=== PATIENT | male | born 1965 | race Two or more races ===

== ENCOUNTER 2025-06-29 16:49 | Emergency (ER) | payer OTHER, SELFPAY ==
[2025-06-29 16:51] VITALS: BP 138/100
--- NOTE | 2025-06-29 17:38 | ED.GENMED ---
History of Present Illness
General
Chief Complaint: Musculo-Skeletal Complaint
Source: patient
Exam Limitations: none
Time Seen by Provider: 06/29/25 17:27
History of Present Illness
History of Present Illness:
See MDM
Past History
Past History
ED Past Medical History: CAD, HTN and Hypercholesterolemia
ED Past Surgical History: Cardiac
Patient has exhibited threatening behavior?: No
PSI?: No
Phy Exam
Physical Exam
Physical Exam:
See MDM
Course
Orders/Labs/Results
Orders:
Orders
06/29/25 17:37
Electrocardiogram (*1) Urgent
Reason for Study: Chest Pain
EKG- Treatment ONCE
CR Chest - 2 Views Urgent
Comment:
Reason For Exam: cough
06/29/25 17:55
COVID-19 Antigen Urgent
Source: Nasal Swab
Complete Blood Count/With Diff Urgent
Comprehensive Metabolic Panel Urgent
Manual Differential Urgent
Troponin I Urgent
Urinalysis Reflex To Culture Urgent
Date Specimen was Collected: 06/29/25
Time Specimen was Collected: 17:40
Influenza A+B Rapid Molecular Urgent
MARIELENA Source: Nasal Swab
Specimen Description:
Abnormal Lab Results
06/29/25
17:55
Hgb 12.0 L g/dL
(13.0-18.0)
Hct 37.2 L %
(39.0-52.0)
MCV 70.3 L fL
(80.0-94.0)
MCH 22.7 L pg
(27.0-31.0)
MCHC 32.3 L g/dL
(33.0-37.0)
RDW 15.6 H %
(11.5-14.5)
MPV 10.5 H fL
(7.4-10.4)
Monocytes (Manual) 19 H %
(2-9)
Urine Glucose 4+ A
(Negative)
06/29/25 17:55
06/29/25 17:55
Vital Signs
Initial and Last Documented VS:
Initial Vital Signs
Temp Pulse Resp BP Pulse Ox
98.0 F 98 18 138/100 99
06/29/25 16:51 06/29/25 16:51 06/29/25 16:51 06/29/25 16:51 06/29/25 16:51
Last Documented Vital Signs
Temp Pulse Resp BP Pulse Ox
98.0 F 84 19 136/89 98
06/29/25 16:51 06/29/25 18:00 06/29/25 18:00 06/29/25 18:00 06/29/25 18:06
MDM/Problems Addressed
Differential Diagnosis Includes:
CHIEF COMPLAINT(S)
Chest discomfort, generalized muscle cramping, and increased urination at night.
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
HISTORY OF PRESENT ILLNESS
The patient is a 60-year-old male presenting with one week of significant perspiration observed upon waking. This is associated with generalized muscle cramping in both legs and hands. The patient also reports a mild cough and mild discomfort in the
left side of the chest. He and his are more concerned about the chest discomfort, given a prior history of cardiac stents. The patient denies any recent travel or contact with sick individuals. Additionally, he reports increased nocturnal
urination and a sensation of incomplete bladder emptying despite adequate water intake.
PHYSICAL EXAM
General: Alert, no acute distress.
Skin: Warm, dry.
Head: Normocephalic, atraumatic
Neck: Appears supple, trachea midline.
Eyes, Ears, Nose, Mouth, and Throat: Moist mucous membranes
Cardiovascular: No signs of cyanosis. Regular rate and rhythm
Respiratory: Respirations are non-labored. Lungs clear
Abdomen: Non-distended and nontender
Musculoskeletal: No deformities. No tenderness to palpation of calves or thighs
Neurological: No focal neurological deficit observed.
Psychiatric: Cooperative, appropriate mood and affect.
SUMMARY OF ENCOUNTER
The patient was seen in the emergency department for evaluation of chest discomfort, generalized muscle cramping, and increased nocturnal urination. Given the history of cardiac stents, the concern for cardiac-related chest pain was considered but
seemed less likely due to the symptomatology. An electrocardiogram (EKG) and troponin level were planned to rule out cardiac involvement. A urinary tract infection (UTI) and benign prostatic hyperplasia (BPH) were also part of the differential
considerations due to the urinary symptoms.
DIFFERENTIAL DIAGNOSIS
The Differential Diagnosis includes, in no particular order and is not limited to:
- Musculoskeletal pain
- Gastroesophageal reflux disease (GERD)
- Cardiac ischemia
- Urinary tract infection (UTI)
- Benign prostatic hyperplasia (BPH)
- Diabetes mellitus
- Anxiety disorder
- Electrolyte imbalance
- Hyperhidrosis
- Sleep apnea
PLAN
- Obtain EKG and troponin level to evaluate cardiac involvement.
- Investigate infectious etiologies and evaluate for urinary tract infection and benign prostatic hyperplasia.
- Address nocturnal urination and sensation of incomplete bladder emptying.
DIAGNOSIS
Based on the current symptoms and considerations:
- Chest pain (R07.9)
- Muscle cramps (M62.830)
- Polyuria (R35.8)
MEDICATION RECONCILIATION
Medications to be confirmed or prescribed based on further evaluations and results.
MEDICAL DECISION MAKING
-Complexity of Data Reviewed: Chronic conditions affecting care include the history of cardiac stents.
-Data:
Category 1
No external records reviewed directly.
Category 2
No additional historians consulted.
Category 3
No discussions with other healthcare providers noted.
-Risk:
Consideration of Admission/Observation: Escalation of care, including admission/observation, was considered given the complexity and risk of the patients presenting complaint. However, ultimately the patient is safe for outpatient management with
close follow-up due to reassuring work-up, controlled symptoms upon reevaluation, and stable vitals.
CARE-UPDATE
06/29/25 - 18:05
Bladder scan suggests reduced likelihood of BPH. Urinalysis results pending for further evaluation.
EKG
My independent EKG interpretation is:
- Time of EKG: Not specified
- Rhythm: Normal sinus rhythm
- Heart rate: 77 beats per minute
- [place]: Normal axis
- TN interval: Not specified
- QRS duration: Not specified
- QT interval: Not specified
- ST segment: No ST elevation noted
- T wave: Not specified
- Arrhythmias/Other abnormalities: Not specified
SUMMARY OF ENCOUNTER
The patient, a 60-year-old male, was seen in the emergency department with complaints of significant sweating upon waking, generalized muscle cramping, mild cough, and mild chest discomfort on the left side. Due to his history of cardiac stents,
there was concern about potential cardiac-related chest pain. An EKG and troponin levels were obtained which did not suggest acute coronary syndrome, much to the patient�s relief. Electrolytes were within normal limits. Although the patients blood
sugar is controlled, a urinalysis showed 4+ glucose, indicating glycosuria. The potential connection of his symptoms with urinary issues is to be managed by his primary care physician. The patient expressed comfort with this plan.
ASSESSMENT
The patients presentation includes chest discomfort, generalized muscle cramping, and increased nocturnal urination. Cardiac involvement seems unlikely, but there is evidence of glycosuria despite controlled blood sugar.
PLAN
- Discharge the patient with a recommendation to follow-up with his primary care physician for further evaluation of his symptoms, including the glycosuria.
- Consider evaluation by a urologist if urinary symptoms persist or worsen.
INDEPENDENT REVIEW OF LABS AND INTERPRETATION OF TESTS
My independent review of the EKG shows normal sinus rhythm with a heart rate of 77 bpm and no signs of acute coronary syndrome. Electrolytes were within normal limits. My independent review of urinalysis shows 4+ glucose, indicating glycosuria.
PATIENT EDUCATION AND COUNSELING
The patient was informed about the normal findings on the EKG and troponin, reducing concerns about an acute cardiac event. The significance of glucose in the urine was discussed, and it was recommended to follow up with his primary care provider to
address potential diabetic management and urinary symptoms.
FOLLOW-UP INSTRUCTIONS
The patient was advised to contact his primary care physician as soon as possible to schedule a follow-up visit for further evaluation and management of the glycosuria and urinary symptoms.
MEDICAL DECISION MAKING
- Complexity of Data Reviewed: Chronic conditions affecting care include the history of cardiac stents. Differential diagnoses considered were musculoskeletal pain, GERD, cardiac ischemia, UTI, BPH, diabetes mellitus, anxiety disorder, electrolyte
imbalance, hyperhidrosis, sleep apnea.
- Data:
Category 1: My independent interpretation of EKG showed no acute coronary syndrome.
Category 2: None.
Category 3: None.
- Risk: Consideration of Admission/Observation: Escalation of care including admission/observation was considered given the complexity and risk of the patients presenting complaints. However, I feel the patient is safe for outpatient management with
close follow-up. Reasoning: Work-up reassuring, does not reveal any acute life/organ threatening processes, patients symptoms well controlled upon re-evaluation, reexamination is reassuring, vitals are stable, patient agreeable with discharge,
reliable for follow-up.
DIAGNOSIS
- Chest pain (R07.9)
- Muscle cramps (M62.830)
- Polyuria (R35.8)
*Pulse Oximetry
SaO2: 99
Patient hypoxic: no
*Critical Care Note
Total Time (30-74mins, 75-104mins- exclusive of procedures): Not Applicable
ED Attending Note
-
Portions of this chart may have been created with voice recognition software.� Occasional wrong word or��sound alike� substitutions may have occurred due to the inherent limitations of voice recognition software.
Discharge Plan
Departure
Patient Disposition: Home (Routine Discharge)
Date of Disposition: 06/29/25
Time of Disposition: 18:57
Patient with high blood pressure during this ER visit?: No
Discharge Problem:
Chest discomfort
Instructions: Chest Pain PCP Follow Up
Referrals:
Kj Bowles MD [Family Provider, Internal Medicine]
Activity Restrictions/Additional Instructions:
Please return for any worsening symptoms.
You may return at any time if you have further concerns.
Please follow up with your doctor at the first available appointment, preferably this week. Please go over your symptoms in regards to the sweating, muscle cramping, chest discomfort and sugar seen in the urine.
Thank you for choosing [facility].
Interventions
Interventions:
*General Assessment Last Done: 06/29/25 16:54
*Neglect/Abuse Screening Last Done: 06/29/25 16:54
*ED COVID-19 Vaccine History Last Done: 06/29/25 16:54
*ED Influenza Vaccine History Last Done: 06/29/25 16:54
[facility] Risk Assessment Tool Last Done: 06/29/25 18:04
*Risk Screen - Suicide (C-SSRS) Last Done: 06/29/25 16:54
ED-Musculoskeletal Assessment Last Done: 06/29/25 18:06
Discharge Date and Time
Print Language: SWISS
[2025-06-29 17:50] VITALS: BP 117/80
[2025-06-29 17:55] VITALS: BMI 21.9
[2025-06-29 18:00] VITALS: BP 136/89
[2025-06-29 18:06] LABS: Hematocrit 37.2 % (39.0-52.0); Hemoglobin 12.0 g/dL (13.0-18.0); Mean Corp Hgb Conc. 32.3 g/dL (33.0-37.0); Mean Corpuscular Volume 70.3 fL (80.0-94.0); Platelet Count 215 10^3/uL (130-400); Red Cell Dist. Width 15.6 % (11.5-14.5)
[2025-06-29 18:20] LABS: COVID-19 Antigen Negative (Negative)
[2025-06-29 18:22] LABS: Urine Character Clear (Clear)
[2025-06-29 18:24] LABS: ALT (SGPT) 21 U/L (0-50); AST (SGOT) 22 U/L (17-59); Albumin 3.8 g/dl (3.5-5.0); Alkaline Phosphatase 63 U/L (38-126); Blood Urea Nitrogen 17 mg/dl (9-20); Calcium 8.4 mg/dl (8.4-10.2); Carbon Dioxide 24 mmol/L (22-30); Chloride 105 mmol/L (98-107); Estimated Creatinine Clearance 84 ml/min; Glucose 96 mg/dl (70-99); Potassium 3.6 mmol/L (3.5-5.1); Sodium 135 mmol/L (135-145); Total Protein 6.7 g/dl (6.3-8.2); eGFR > 60.00
[2025-06-29 18:29] LABS: Absolute Neutrophils -Man Diff 3.9 10^3/uL (1.4-6.5); Normal RBC Morphology Yes; Platelets Checked Yes; Total Cells Counted 100
[2025-06-29 18:30] LABS: Troponin I 0.012 ng/ml
[2025-06-29 19:00] VITALS: BP 123/92
[2025-06-29 19:14] VITALS: BP 121/94
== END 2025-06-29 19:47 | disposition home or self-care (01) ==
LOC: EMR 16:49
PROVIDERS: EMERGENCY PHYSICIAN Student in an Organized Health Care Education/Training Program; FAMILY PHYSICIAN Internal Medicine
DX: R07.89 Other chest pain (principal); R81 Glycosuria; I25.10 Atherosclerotic heart disease of native coronary artery without angina pectoris; Z11.52 Encounter for screening for COVID-19; Z95.5 Presence of coronary angioplasty implant and graft
CPT/HCPCS: 99285; 71046; 80053; 81003; 84484; 85025; 87502; 87811; 93005